=== PATIENT | female | born 1945 | race Caucasian/White ===

== ENCOUNTER 2017-01-23 19:09 | Inpatient (IN) | payer OTHER ==
[~2017-01-23] VITALS: Ht 165.1 cm; Wt 74.7 kg
--- NOTE | ~2017-01-23 | HC ---
[facility] [place] [address] CONSULTATION Name: CLEO CASON Room #: 404-P ADM IN M.R.#: [id number] Admission: 01/23/17 Attend Phys: Erwin Robles MD Discharge: Date of : 43 Report #: [id number] THIS REPORT FOR: //name// CC: JD physician/PCP Erwin Robles NEUROLOGY CONSULTATION HISTORY OF PRESENT ILLNESS: The patient is a 71-year-old female, who has been having some unusual behaviors at bedtime. In retrospect, the family realizes that the patient has been having difficulty with her memory and a Neurology consult has been requested. The patient admits that she has difficulty with her memory. She was nervous during the interview. She seemed concerned about her driving; however, she states that she does not get lost and has not had an accident in 40 years. She lives alone by herself. She pays her bills on time when she has the money, but apparently struggles with her finances. Apparently while she has been in the hospital, she has made phone calls in the middle of the night to her daughter and has no recollection of these events. In addition, she could not remember how she got to the hospital. She was brought to the hospital by her daughter stating that she had abdominal pain. Reviewing the medical records, the patient was admitted for lower abdominal pain and diagnosed with possible diverticulitis and urinary tract infection. The patient is now on ceftriaxone, metronidazole, and Pepcid. She has p.r.n. morphine and Zofran, which she has not received for 2 days. PAST MEDICAL HISTORY: Hayfever. PAST SURGICAL HISTORY: Negative. MEDICATIONS: Aspirin 81 mg daily. ALLERGIES: None. SOCIAL HISTORY: The patient smokes 3-6 cigarettes a day. She does not drink. She lives alone in an apartment. PHYSICAL EXAMINATION: VITAL SIGNS: Temperature 36.9, pulse rate 83, respiratory rate 24, blood pressure 135/67, and bedside pulse oximetry 97. LABORATORY DATA: White blood cell count 14.4, hemoglobin 12.3, hematocrit 36.3, MCV 92.7, and platelet count 174,000. Urinalysis; 2+ ketones, trace blood, and 1+ leukocyte esterase. Chemistry: Sodium 137, potassium 3.4, chloride 102, carbon dioxide 26, BUN 6, creatinine 0.7, GFR 82, glucose 143, calcium 8.6, total bilirubin 0.7, direct bilirubin 0.1, AST 24, ALT 32, alkaline phosphatase 126, and total protein 7. [place]SH 1[place] [address] CONSULTATION Name: CLEO CASON Room #: 404-P [facility] IN ..#: [id number] Admission: 01/23/17 Attend Phys: Erwin Robles MD Discharge: Date of : 43 Report #: [id number] NEUROLOGIC: Mini mental state: The patient scored a 26/30. Cranial nerves 2-12 are grossly intact. Motor exam demonstrated symmetrical strength in all 4 extremities. There was no evidence of dysmetria. Gait was not tested. ASSESSMENT: This patient has mild cognitive impairment. I have ordered a B12 to complete the dementia workup along with an MRI of the head without contrast. It should be noted that the patient has an underlying infection and this may compound the difficulty with her memory; however, her daughter reported and the patient also reports difficulty with the memory prior to this hospital admission. Therefore, donepezil 5 mg at bedtime was prescribed for the patient. The side effects of donepezil including nausea, insomnia, leg cramps and nightmares were discussed with the patient. I also explained that the medication can take 2-3 months before it becomes effective. The patient will need neurological followup once she is discharged. I do not know what the patient's discharge plans are, and I do plan on seeing her tomorrow if she is still here. I thank you for your kind referral of the patient and we will continue to follow her you. <ELECTRONICALLY SIGNED> By: Deborah Norris DO 01/27/17 [id number] Deborah Norris DO /nt
--- NOTE | ~2017-01-23 | H ---
[facility] [place] [address] HISTORY AND PHYSICAL Name: CLEO CASON Room #: 404-P ADM IN M.R.#: [id number] Admission: 01/23/17 Attend Phys: Erwin Robles MD Discharge: Date of : 43 Report #: [id number] THIS REPORT FOR: //name// CC: [facility] physician/PCP Erwin Robles DATE OF SERVICE: 01/23/2017 ATTENDING PHYSICIAN: Dr. Robles. PRIMARY CARE PHYSICIAN: Dr. Elias. CHIEF COMPLAINT: Lower abdominal pain. HISTORY OF PRESENT ILLNESS: The patient is a 71-year-old female who has been experiencing some lower abdominal pain for the last 2-3 days, it got worse today. Pain started mostly on her right lower abdomen, but is now worse in her left lower abdomen. She thought she was constipated at first and took a suppository and did have a good sized bowel movement last night. She denies seeing any blood in her stool. She denies any fevers or chills. She has not been having any nausea, vomiting or diarrhea. She overall has also had decrease energy in the last 3-4 days. She denies any history of diverticulitis or any bowel problems. She does not really see a doctor regularly, and she has never had a colonoscopy. She was evaluated in the ER, noted to have a UTI and diverticulitis and has been admitted for IV antibiotics. She is currently resting comfortably, and does not want any strong pain medications because she is wary about their side affect. PAST MEDICAL HISTORY: None. PAST SURGICAL HISTORY: None. ALLERGIES: None. HOME MEDICATIONS: She does take ____ aspirin 81 mg daily, otherwise no prescription medications. SOCIAL HISTORY: The patient smokes 3-6 cigarettes per day. She has been smoking for at least 48 years. She says she just quit. She says she has not had any cigarettes in the last 4 days. She denies any alcohol use. She is . She lives in an apartment alone. She had previously worked as a medical transcription. FAMILY HISTORY: Negative for any types of cancer. REVIEW OF SYSTEMS: Twelve point review of systems as reviewed with the patient, [address] [address] HISTORY AND PHYSICAL Name: CLEO CASON Room #: 404-P [facility] IN ..#: [id number] Admission: 01/23/17 Attend Phys: Erwin Robles MD Discharge: Date of : 43 Report #: [id number] otherwise negative unless stated in the HPI. PHYSICAL EXAMINATION: GENERAL: The patient is an alert female in no acute distress. VITAL SIGNS: Temperature is 37.1, heart rate 109, respirations 17, blood pressure is 143/54, oxygen 97% on room air. HEENT: PERRLA. Sclerae are nonicteric. Oral mucosa is pink and moist. NECK: Supple, no JVD noted. CARDIOVASCULAR: Normal S1, S2. No murmurs, rubs or gallops. RESPIRATORY: Breath sounds are clear bilaterally. She is diminished in both bases. Breathing is nonlabored. ABDOMEN: Soft and round. She does have significant tenderness in the suprapubic and left lower quadrants. Bowel sounds are hypoactive. VASCULAR: She does have trace bilateral lower extremity edema. Pedal pulses are 2+. NEUROLOGIC: The patient is alert. She is oriented x 3. She is able to carry on a full conversation. Speech is clear, although she is somewhat forgetful. She is able to move all extremities equally. No focal weakness noted. I did not see her ambulate. PSYCHIATRIC: The patient is somewhat anxious appearing, but cooperative. LABORATORY DATA AND DIAGNOSTICS: WBC is 14.5, hemoglobin 12.3, platelets are 202. Sodium is 135, potassium 3.6, BUN 9, creatinine 0.7, glucose 99 and LFTs are within normal limits. Lipase is 100. UA showed 2+ ketones, 1+ leukocyte esterase, few WBCs and few bacteria. CT of the abdomen shows ill-defined edema throughout the deep left pelvis. This is close to the sigmoid colon and may reflect diverticulitis arising from the sigmoid colon. We cannot be certain of the etiology of this finding to ____ reexamination of the pelvis. There is also an abnormal appearance involving the right hip and pelvic bone and a nonemergent MRI of the hip is suggested to exclude tumor. There are cysts involving the left ovary and there is noncalcified left lower lobe lung nodule measuring 1.57 cm. The right ____ are clear. Lung bases are clear. ASSESSMENT AND PLAN: 1. Possible diverticulitis: The patient does have findings on CT and exam consistent with diverticulitis. She also has an elevated white count. We will continue with IV antibiotics and keep her n.p.o. She will, at some point, need a colonoscopy for further screening since she has never had one. 2. UTI: We will send urine for culture and continue Rocephin. 3. Lung nodule and ovarian cysts and right hip bone lesion. ____ concerning for an overall picture of possible metastatic disease. We will further evaluate the right hip with an MRI as suggested by radiology. We will also check a CT of the chest today to rule out any lung mass. 4. Tobacco abuse: The patient just quit. 5. Deep venous thrombosis prophylaxis, place sequential compression devices. [facility] [address] [place] [address] HISTORY AND PHYSICAL Name: YOAVCLEO Room #: 404-P ADM IN M.R.#: [id number] Admission: 01/23/17 Attend Phys: Erwin Robles MD Discharge: Date of : 43 Report #: [id number] We will continue to follow the patient closely throughout the hospitalization and make changes based on clinical status. <ELECTRONICALLY SIGNED> By: SABINE Mata 01/27/1704 6 SABINE Mata /nt
[2017-01-23 19:12] VITALS: BP 143/54
[2017-01-23] MEDS ORDERED: ASPIR 8181 MG PO (19:40)
[2017-01-23 19:49] LABS: URINE BILIRUBIN NEGATIVE (Negative); URINE BLOOD TRACE (Negative); URINE COLOR YELLOW; URINE GLUCOSE-RANDOM* NEGATIVE (Negative); URINE KETONES 2+ (Negative); URINE NITRITE NEGATIVE (Negative); URINE PROTEIN (DIPSTICK) NEGATIVE (Negative); URINE UROBILINOGEN 0.2 E.U./dl (0.2-1.0)
[2017-01-23 20:03] LABS: BACTERIA 1-9 Few /HPF (None Seen); CASTS None Seen /LPF (None Seen); CRYSTALS None Seen /LPF (None Seen); SQUAMOUS 0-3 Few /LPF (0-3); URINE RBC 0-2 Rare /HPF (0-2); URINE WBC 6-15 Few /HPF (0-5)
[2017-01-23 20:28] LABS: HEMATOCRIT 39.3 % (37.0-47.0); HEMOGLOBIN 13.6 gm/dL (12.0-15.0); MCH 31.8 pg (26.0-34.0); MCHC 34.6 g/dL (28.0-37.0); MCV 91.7 fL (80.0-100.0); PLATELET COUNT 220 thou/uL (150-400); RBC 4.29 mil/uL (4.20-5.00); RDW 12.6 % (10.5-14.5); WBC 14.5 thou/uL (4.0-11.0)
[2017-01-23 20:29] LABS: MANUAL DIFF YES
[2017-01-23 20:36] LABS: CALCIUM 8.5 mg/dL (8.5-10.1); CREATININE 0.7 mg/dL (0.6-1.0); POTASSIUM 3.6 mmol/L (3.5-5.1)
[2017-01-23 20:40] LABS: ALBUMIN 3.6 g/dL (3.4-5.0); DIRECT BILIRUBIN 0.1 mg/dL (<0.1-0.3); TOTAL BILIRUBIN 0.7 mg/dL (<0.1-1.0)
[2017-01-23 21:11] LABS: ABSOLUTE NEUTROPHILS 13.1 thou/uL (1.4-8.2); TOTAL CELL COUNT 100
[2017-01-23 22:53] VITALS: BP 148/58
[2017-01-23 23:40] VITALS: BP 137/61
[2017-01-24 05:23] VITALS: BP 117/69
[2017-01-24 06:03] LABS: HEMATOCRIT 36.8 % (37.0-47.0); HEMOGLOBIN 12.3 gm/dL (12.0-15.0); MCHC 33.4 g/dL (28.0-37.0); RBC 3.96 mil/uL (4.20-5.00); WBC 14.5 thou/uL (4.0-11.0)
[2017-01-24 07:20] VITALS: BP 94/57
[2017-01-24 16:34] VITALS: BP 114/69
[2017-01-24 20:00] VITALS: BP 106/56
[2017-01-25 04:00] VITALS: BP 137/62
[2017-01-25 04:24] LABS: ABSOLUTE NEUTROPHILS 8.8 thou/uL (1.4-8.2); BASOPHILS 0.3 % (0.0-2.0); EOSINOPHILS 1.2 % (0.0-3.0); HEMATOCRIT 35.5 % (37.0-47.0); HEMOGLOBIN 11.8 gm/dL (12.0-15.0); LYMPHOCYTES 11.7 % (24.0-44.0); MCH 31.3 pg (26.0-34.0); MCHC 33.2 g/dL (28.0-37.0); MCV 94.2 fL (80.0-100.0); MONOCYTES 7.5 % (1.0-8.0); PLATELET COUNT 205 thou/uL (150-400); POLYS 79.3 % (36.0-66.0); RBC 3.77 mil/uL (4.20-5.00); RDW 12.7 % (10.5-14.5); WBC 11.1 thou/uL (4.0-11.0)
[2017-01-25 04:32] LABS: MANUAL DIFF NO
[2017-01-25 04:40] LABS: CALCIUM 8.5 mg/dL (8.5-10.1); CREATININE 0.7 mg/dL (0.6-1.0); POTASSIUM 3.9 mmol/L (3.5-5.1)
[2017-01-25 08:36] VITALS: BP 140/62
[2017-01-25 16:00] VITALS: BP 133/65
[2017-01-25 20:24] VITALS: BP 135/63
[2017-01-26 03:24] VITALS: BP 136/82
[2017-01-26 04:22] LABS: HEMATOCRIT 36.3 % (37.0-47.0); HEMOGLOBIN 12.3 gm/dL (12.0-15.0); MCH 31.5 pg (26.0-34.0); MCHC 33.9 g/dL (28.0-37.0); MCV 92.7 fL (80.0-100.0); RBC 3.91 mil/uL (4.20-5.00); RDW 12.9 % (10.5-14.5); WBC 14.4 thou/uL (4.0-11.0)
[2017-01-26 04:33] LABS: CALCIUM 8.6 mg/dL (8.5-10.1); CREATININE 0.7 mg/dL (0.6-1.0); POTASSIUM 3.4 mmol/L (3.5-5.1)
[2017-01-26 08:00] VITALS: BP 135/67
[2017-01-26 16:02] VITALS: BP 135/75
[2017-01-26 20:00] VITALS: BP 155/83
[2017-01-27 07:07] VITALS: BP 155/76
[2017-01-27 08:03] LABS: ABSOLUTE NEUTROPHILS 4.7 thou/uL (1.4-8.2); BASOPHILS 0.6 % (0.0-2.0); EOSINOPHILS 4.8 % (0.0-3.0); HEMATOCRIT 36.5 % (37.0-47.0); HEMOGLOBIN 12.6 gm/dL (12.0-15.0); LYMPHOCYTES 16.4 % (24.0-44.0); MCH 31.6 pg (26.0-34.0); MCHC 34.5 g/dL (28.0-37.0); MCV 91.6 fL (80.0-100.0); MONOCYTES 8.9 % (1.0-8.0); POLYS 69.3 % (36.0-66.0); RBC 3.98 mil/uL (4.20-5.00); RDW 12.6 % (10.5-14.5); WBC 6.8 thou/uL (4.0-11.0)
[2017-01-27 08:04] LABS: PLATELET COUNT 274 thou/uL (150-400)
[2017-01-27 08:05] LABS: MANUAL DIFF NO
[2017-01-27 08:11] LABS: CALCIUM 8.6 mg/dL (8.5-10.1); CREATININE 0.6 mg/dL (0.6-1.0); POTASSIUM 3.5 mmol/L (3.5-5.1)
[2017-01-27 12:28] VITALS: BP 155/76
[2017-01-27] MEDS ORDERED: AUGMENTIN 875875 MG PO (12:43)
[2017-01-27] MEDS ORDERED: ARICEPT 5 MG TAB5 MG PO (12:43)
[2017-01-27 13:07] VITALS: BP 155/76
[2017-01-27] MEDS ORDERED: FLAGYL500 MG PO (13:41)
[2017-01-27] MEDS ORDERED: CEFUROXIME500 MG PO (13:41)
== END 2017-01-27 14:06 | disposition home health service (06) | DRG 871 ==
LOC: ER 19:09 → 4N 22:17 → EROBS 22:17 → 4N 22:54
PROVIDERS: Hospitalist; Internal Medicine Endocrinology, Diabetes & Metabolism; Nurse Practitioner; Nurse Practitioner Acute Care
DX: A41.9 Sepsis, unspecified organism (principal); G93.41 Metabolic encephalopathy; K57.92 Diverticulitis of intestine, part unspecified, without perforation or abscess without bleeding; N39.0 Urinary tract infection, site not specified; N83.209 Unspecified ovarian cyst, unspecified side; F17.210 Nicotine dependence, cigarettes, uncomplicated; R91.8 Other nonspecific abnormal finding of lung field; M88.851 Osteitis deformans of right thigh; F03.90 Unspecified dementia, unspecified severity, without behavioral disturbance, psychotic disturbance, mood disturbance, and anxiety; Z60.2 Problems related to living alone; R91.1 Solitary pulmonary nodule; M89.9 Disorder of bone, unspecified; Z79.82 Long term (current) use of aspirin; Z88.0 Allergy status to penicillin
CPT/HCPCS: 10091